=== PATIENT | male | born 1965 | race Caucasian/White ===

== ENCOUNTER 2016-10-21 14:06 | Inpatient (IN) | payer BC, OTHER ==
[~2016-10-21] VITALS: Ht 167.6 cm; Wt 73.9 kg
[2016-10-21] MEDS ORDERED: LORAZEPAM 2 MG/1 ML VIAL IM PRN (14:45)
[2016-10-21] MEDS ORDERED: THIAMINE HCL 200 MG/2 ML VIAL IM ONE (14:45)
[2016-10-21] MEDS ORDERED: LOPERAMIDE HCL 2 MG CAPSULE PO PRN ×2 (14:45)
[2016-10-21] MEDS ORDERED: MIRALAX 17 GM POWD.PACK PO PRN (14:45)
[2016-10-21] MEDS ORDERED: ONDANSETRON ODT 4 MG TAB.RAPDIS SL PRN (14:45)
[2016-10-21] MEDS ORDERED: diphenhydrAMINE 50 MG CAPSULE PO PRN ×2 (14:45→16:45)
[2016-10-21] MEDS ORDERED: MAGNESIUM HYDROXIDE 30 ML LIQUID UDC PO PRN (14:45)
[2016-10-21] MEDS ORDERED: ACETAMINOPHEN 325 MG TABLET PO PRN (14:45)
[2016-10-21] MEDS ORDERED: LORAZEPAM 1 MG TABLET PO PRN ×2 (14:45)
[2016-10-21] MEDS ORDERED: ONDANSETRON 4 MG/2 ML VIAL IM PRN (14:45)
--- NOTE | 2016-10-21 14:45 | NUR ---
Intake assessment Pt ix AxOx4, VS are stable, pt is cleared to come up to unit.
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
[2016-10-21 15:01] VITALS: BP 133/83
[2016-10-21] MEDS ORDERED: METF500T4 PO (15:07)
[2016-10-21] MEDS ORDERED: HYDROXYZINE PAMOATE 25 MG CAPSULE PO ONE (15:45)
--- NOTE | 2016-10-21 15:55 | NUR ---
MD communication Pt c/o severe anxiety. Notified Dr Mirza, ordered vistaril 50mg Po x 1 now. Orders entered, unable to enter orders.
[2016-10-21 16:00] VITALS: BP 121/83
[2016-10-21] MEDS: MAG HYDROX/AL HYDROX/SIMETH 30 ML LIQUID UDC PO PRN (16:02)
[2016-10-21 16:24] LABS: BASOPHILS % (AUTO) 0.2 % (0.0-2.0); BILIRUBIN,TOTAL 0.9 mg/dL (0.2-1.0); CREATININE 0.9 mg/dL (0.6-1.3); EOSINOPHILS % (AUTO) 0.3 % (0.0-7.0); HEMATOCRIT 47.4 % (40-50); HEMOGLOBIN 16.1 G/DL (14.0-18.0); LYMPHOCYTES % (AUTO) 19.7 % (20.5-51.5); MAGNESIUM 2.5 mg/dL (1.8-2.4); MEAN CORPUSCULAR HEMOGLOBIN 31.4 UUG (27.0-31.0); MEAN CORPUSCULAR HGB CONC 34 g/dL (32.0-37.0); MEAN CORPUSCULAR VOLUME 92.4 FL (82.0-92.0); MONOCYTES % (AUTO) 10.1 % (0.0-11.0); NEUTROPHILS # (AUTO) 7.3 K/UL (1.8-8.9); NEUTROPHILS % (AUTO) 69.7 % (38.5-71.5); PLATELET COUNT (AUTO) 142 K/UL (150-450); POTASSIUM 3.6 mmol/L (3.5-5.1); RED BLOOD CELL COUNT(AUTO) 5.13 MIL/UL (4.7-6.1); WHITE BLOOD COUNT (AUTO) 10.3 K/UL (4.0-11.2)
[2016-10-21] MEDS ORDERED: IV NS 1000 ML 1,000 ML IV PRN (16:30)
[2016-10-21] MEDS ORDERED: diphenhydrAMINE 25 MG/10 ML UDC NG PRN (17:00)
--- NOTE | 2016-10-21 17:00 | NUR ---
Reassessment Pt continues to c/o severe anxiety, will administer PRN ativan per Dr Mirza orders
[2016-10-21 17:17] LABS: *AMPHETAMINE, URINE NEGATIVE (NEGATIVE); *BARBITURATE, URINE NEGATIVE (NEGATIVE); *CANNABINOID, URINE NEGATIVE (NEGATIVE); *COCCAINE, URINE NEGATIVE (NEGATIVE); *OPIATE, URINE NEGATIVE (NEGATIVE); *PHENCYCLIDINE SCREEN,URINE NEGATIVE (NEGATIVE)
[2016-10-21] MEDS: METFORMIN HCL 500 MG TABLET PO SCH (17:34)
--- NOTE | 2016-10-21 17:35 | NUR ---
PRN administration Pt has a CIWA of 17. Notified Dr Mirza, administered PRN ativan per MD order. IV 22 G inserted into L hand x 3 attempts. Pt tolerated well. Will continue to monitor pt.
[2016-10-21] MEDS ORDERED: PATIENT MAY USE OWN MED- MD OK PO SCH (18:00)
--- NOTE | 2016-10-21 18:21 | NUR ---
MD communication Pt noted to have severe levels of anxiety, spoke with Dr Garcia, ordered seroqeul 25mg PO Q4H PRN anxiety/agitation, to end on 10/22/16 at 2100. Orders entered, was unable to enter the orders.
--- NOTE | 2016-10-21 18:30 | NUR ---
MD communication Pt states that he had TB from the ages of [age], Dr Mirza notified, stated to administer PPD test. Orders entered.
--- NOTE | 2016-10-21 18:35 | NUR ---
Reassessment Pt is sleeping soundly with 1:1 sitter at bedside. Will continue to monitor pt. All needs addressed at this time. IV fluids infusing.
[2016-10-21] MEDS ORDERED: QUETIAPINE FUMARATE 25 MG TABLET PO PRN (18:45)
--- NOTE | 2016-10-21 18:56 | NUR ---
End of shift note Pt was admitted for ETOH dependence. Pt has a PMHx bipolar d/o, DMII - on metformin PO, pending further lab evaluation. Pt reports an allergy to shellfish, is on a consistent carb diet and is a full code. Pt remains on a 1:1 for safety. IV NS infusing to L hand without incident. 1:1 sitter remains at bedside. Pt required one dose of PRN ativan for his withdrawals s/s, with effectiveness. Will endorse SBAR to oncoming shift. All needs addressed at this time.
--- NOTE | 2016-10-21 19:15 | NUR ---
START OF SHIFT NOTE : Pt. was admitted for ETOH dependence. Pt has a PMHx bipolar d/o, DMII - on metformin PO, pending further lab evaluation. Pt reports an allergy to shellfish, is on a consistent carb diet and is a full code. Pt remains on a 1:1 for safety. IV NS at 120ml/hour infusing to L hand without incident. 1:1 sitter remains at bedside. Pt. is sleeping at this time. Safety measures in place : bed on lowest position with side rails x2 up for safety, call light within reach. Will continue to monitor closely and offer help.
[2016-10-21 20:00] VITALS: BP 140/90
[2016-10-21] MEDS ORDERED: LORAZEPAM 1 MG TABLET PO ONE (21:00)
--- NOTE | 2016-10-22 01:29 | NUR ---
PRN MOTRIN/MAALOX AND BENTYL ADMINISTRATION PATIENT C/O INDIGESTION, ABDOMINAL CRAMPING AND HEADACHE 07/11 . PRN MOTRIN, MAALOX AND BENTYL GIVEN. WILL MONITOR FOR EFFECTIVENESS Addendum: 10/23/16 at 0649 by KARYNA PATEL LVN ERROR: TIME CHARTING
[2016-10-22 04:00] VITALS: BP 123/81
--- NOTE | 2016-10-22 06:00 | NUR ---
PRN BENTYL Pt. complains of stomach cramps. PRN BENTYL given as ordered. Safety measures in place : bed on lowest position with side rails x2 up for safety, call light within reach. Will continue to monitor closely and offer help.
[2016-10-22] MEDS: DICYCLOMINE HCL 20 MG TABLET PO PRN (06:41)
--- NOTE | 2016-10-22 06:54 | NUR ---
END OF SHIFT NOTE : Pt. was admitted for ETOH dependence. Pt has a PMHx bipolar d/o, DMII - on metformin PO, pending further lab evaluation. Pt reports an allergy to shellfish, is on a consistent carb diet and is a full code. Pt remains on a 1:1 for safety. IV NS at 120ml/hour (infusing to L hand) till 04:00. 1:1 sitter remains at bedside. Pt. is sleeping at this time. Pt remains partially compliant with the treatment plan. PRN Bentyl , O2 2l/min via NC given at 04:00 because of SpO2=90%. RR=16, even and unlabored, lungs= small amount of wheezes upon auscultation, abdomen soft and non- distended. Pt denies nausea, vomiting and diarrhea. LAST CIWA=6 at 0400 , CRKHRL=013 ml, voided1 x , slept 6 hours. Safety measures in place : bed on lowest position with side rails x2 up for safety, call light within reach. Will continue to monitor closely and offer help. Addendum: 10/22/16 at 0700 by YRIS CHACON RN Pt. accidentally pulled IV out
--- NOTE | 2016-10-22 07:00 | NUR ---
REASSESSMENT ALLA Pt. is sleeping, RR=16, unlabored and even. Safety measures in place : bed on lowest position with side rails x2 up for safety, call light within reach. Will continue to monitor closely and offer help.
--- NOTE | 2016-10-22 07:15 | NUR ---
start of shift note: received pt from police shift commander nurse, pt is in stable condition no s/s of pain or discomfort. pt is [facility] for [facility]TOH withdrawal/dependence.pt is tolerating taper medications well. pt's IV was dislodged and at this time refuses IV fluids. will discuss with MD if pt needs further IV fluids, pt is tolerating oral fluids at this time. pt's last ciwa is 6. pt remains on 1:1 for unsteady gait
[2016-10-22] MEDS: LORAZEPAM 1 MG TABLET PO SCH ×3 (08:16→21:51)
[2016-10-22] MEDS: FOLIC ACID 1 MG TABLET PO SCH (08:17)
[2016-10-22] MEDS: THIAMINE HCL 100 MG TABLET PO SCH (08:17)
[2016-10-22] MEDS: MULTIVITAMINS,THERAPEUTIC TABLET PO SCH (08:17)
[2016-10-22] MEDS: METFORMIN HCL 500 MG TABLET PO SCH ×2 (08:17→17:07)
--- NOTE | 2016-10-22 08:48 | NUR ---
PRN ADMINISTRATION: PT VERBALIZED HE IS AGITATED AND ANXIOUS. PT APPEARS TREMULOUS. PRN 25 MG SEROQUEL WAS ADMINISTERED. WILL RE-ASSESS EFFECTIVENESS OF MEDICATION
[2016-10-22] MEDS ORDERED: TUBERCULIN,PURIF.PROT.DERIV. 5 TU/0.1 ML TEST ID ONE ×2 (09:00)
--- NOTE | 2016-10-22 09:15 | NUR ---
PRN RE-ASSESSMENT: PT IS IN BED RESTING COMFORTABLY, NO S/S OF AGITATION OR DISCOMFORT.
[2016-10-22 10:32] VITALS: BP 131/92
[2016-10-22 12:30] VITALS: BP 127/90
[2016-10-22] MEDS: CLONIDINE HCL 0.1 MG TABLET PO PRN ×2 (17:08→23:03)
--- NOTE | 2016-10-22 17:21 | NUR ---
PRN ADMINISTRATION: PT VERBALIZED INCREASED ANXIETY AND HR. HR NOTED AT 102. PRN CLONIDINE WAS ADMINISTERED
[2016-10-22] MEDS ORDERED: LORAZEPAM 1 MG TABLET PO ONE (17:30)
[2016-10-22] MEDS ORDERED: HYDROXYZINE PAMOATE 25 MG CAPSULE PO PRN (17:30)
[2016-10-22] MEDS ORDERED: NICOTINE POLACRILEX 4 MG GUM-PK OF TEN BC PRN (17:30)
[2016-10-22 17:32] VITALS: BP 101/82
[2016-10-22] MEDS: MAG HYDROX/AL HYDROX/SIMETH 30 ML LIQUID UDC PO PRN (18:02)
--- NOTE | 2016-10-22 18:02 | NUR ---
PRN MAALOX WAS ADMINISTERED. PT WITH COMPLAINTS OF HEART BURN AND ACID REFLUX FEELING WILL RE-ASSESS EFFECTIVENESS OF MEDICATION
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
[2016-10-22 20:00] VITALS: BP 115/67
--- NOTE | 2016-10-22 20:00 | NUR ---
START OF SHIFT NOTE RECEIVED REPORT FROM DAY SHIFT NURSE. PATIENT IS A 51 YEAR OLD MALE ADMITTED FOR ETOH DEPENDENCE. PATIENT IS ON 5 DAY ATIVAN TAPER. PATIENT IS ALLERGIC TO SHELLFISH AND IODINE. ON CONSISTENT CARB DIET. PATIENT REFUSED TB TEST, ASYMPTOMATIC. DR. HOWARD AWARE. 1:1 WAS DISCONTINUE AND IV. PATIENT PREVIOUSLY WAS PUT 1:1 FOR SAFETY. PATIENT IS NOW DRINKING. PER DAY SHIFT NURSE, PATIENT WAS ANXIOUS WITH NEW ORDER OF VISTARIL. PRN SEROQUEL, CLONIDINE AND MAALOX GIVEN.LAST CIWA 6. VTE PUMPS ON BEDSIDE FOR VTE SCORE 2. ON FALL/SEIZURE PRECAUTION. SAFETY MEASURES IN PLACE. CALL LIGHT IN REACH. WILL CONTINUE TO MONITOR.
[2016-10-22] MEDS: diphenhydrAMINE 25 MG CAP PO PRN (21:51)
--- NOTE | 2016-10-22 21:51 | NUR ---
PRN BENADRYL AND VISTARIL ADMINISTRATION PATIENT REQUESTS FOR SLEEP AID AND REPORTS ANXIETY. PRN VISTARIL AND BENADRYL GIVEN. WILL MONITOR FOR EFFECTIVENESS
--- NOTE | 2016-10-22 23:03 | NUR ---
PRN CATAPRES ADMINISTRATION PATIENT STILL C/O ANXIETY , RESTLESS AND EMOTIONAL. PRN CATAPRES GIVEN. RELAXATION TECHNIQUE PROVIDED. WILL CONTINUE TO MONITOR. Addendum: 10/23/16 at 0650 by KARYNA PATEL LVN CATAPRES AND BENADRYL MILDLY EFFECTIVE
[2016-10-23] VITALS: BP 142/91
--- NOTE | 2016-10-23 01:03 | NUR ---
PRN CATAPRES RE-ASSESSMENT PATIENT IN BED WITH HIS EYES CLOSED. RESPIRATION EVEN AND UNLABORED. NO S/S OF DISTRESS. WILL CONTINUE TO MONITOR
[2016-10-23] MEDS: IBUPROFEN 400 MG TABLET PO PRN (01:29)
[2016-10-23] MEDS: MAG HYDROX/AL HYDROX/SIMETH 30 ML LIQUID UDC PO PRN (01:29)
--- NOTE | 2016-10-23 01:29 | NUR ---
BENTYL UNABLE TO SCAN BENTYL MEDS UNABLE TO SCAN, PACKAGE RIPPED.
--- NOTE | 2016-10-23 01:29 | NUR ---
PRN MOTRIN/MAALOX AND BENTYL ADMINISTRATION PATIENT C/O INDIGESTION, ABDOMINAL CRAMPING AND HEADACHE 07/11 . PRN MOTRIN, MAALOX AND BENTYL GIVEN. WILL MONITOR FOR EFFECTIVENESS
[2016-10-23] MEDS: DICYCLOMINE HCL 20 MG TABLET PO PRN (01:32)
--- NOTE | 2016-10-23 02:29 | NUR ---
PRN LIZZETH DELUCA AND ALLA RE-ASSESSMENT PATIENT IN BED ASLEEP. RESPIRATION EVEN AND UNLABORED. NO S/S OF DISTRESS. WILL CONTINUE TO MONITOR
[2016-10-23 04:00] VITALS: BP 122/83
[2016-10-23 05:06] LABS: HEPATITIS B SURFACE AG Negative (Negative)
--- NOTE | 2016-10-23 07:14 | NUR ---
END OF SHIFT NOTE PATIENT CONTINUE ON 5 DAY ATIVAN TAPER FOR ETOH DEPENDENCE. PATIENT IS ALLERGIC TO SHELLFISH AND IODINE. ON CONSISTENT CARB DIET. PATIENT IS ANXIOUS MOST OF THE SHIFT. REDIRECTION AND RELAXATION TECHNIQUE PROVIDED . PATIENT DRINKING FLUIDS WELL. VTE PUMPS ON BEDSIDE FOR VTE SCORE 2. PATIENT COMPLIANT WITH MEDICATION. ENCOURAGED TO ATTEND AND PARTICIPATE IN ACTIVITIES. ON FALL/SEIZURE PRECAUTION. SAFETY MEASURES IN PLACE. CALL LIGHT IN REACH. WILL CONTINUE TO MONITOR. SLEPT 6 HOURS. FLUID INTAKE OF 855 ML. VOIDED X 1. NO BM. LAST CIWA 2.
--- NOTE | 2016-10-23 07:20 | NUR ---
Start of Shift Enzyme Chemist received report on 51 year old male admitted on 10/21/16 for ETOH detoxification. Pt has an allergy to shellfish and iodine, is a full code and on a constant carbohydrate diet. Pt reports PMH of Bipolar, DM 2 and chronic back pain. Pt does not have accu-checks ordered, no sliding scale correction factor. Pt compliant with administration of Metformin. Pt currently on Ativan taper, tolerating well. Last CIWA of 2 recorded by plumber assistant. Pt received Vistaril, Benadryl, Bentyl, Maalox and Motrin as PRN medication last shift. Enzyme Chemist encounters pt in bed resting with eyes closed. Respiration even, unlabored and rise and chest of fall noted. Bed in low position, wheels locked, side rails up x2 and call light within reach. Will continue to monitor, support and encourage according to plan of care.
[2016-10-23 08:07] VITALS: BP 113/82
[2016-10-23] MEDS: FOLIC ACID 1 MG TABLET PO SCH (08:30)
[2016-10-23] MEDS: METFORMIN HCL 500 MG TABLET PO SCH ×2 (08:30→18:22)
[2016-10-23] MEDS: LORAZEPAM 1 MG TABLET PO SCH ×4 (08:30→20:56)
[2016-10-23] MEDS: MULTIVITAMINS,THERAPEUTIC TABLET PO SCH (08:30)
[2016-10-23] MEDS: THIAMINE HCL 100 MG TABLET PO SCH (08:30)
[2016-10-23] MEDS: BOOST GLUCOSE CONTROL 237 ML LIQUID (CHOCOLATE) PO SCH ×2 (08:48→17:34)
[2016-10-23 13:19] VITALS: BP 114/72
[2016-10-23 16:45] VITALS: BP 111/69
--- NOTE | 2016-10-23 17:19 | NUR ---
PRN Imodium Pt states he has had two bouts of diarrhea and is requesting Imodium, by name. Sap Administrator administered medication per MD order and pt tolerated well. Will continue to monitor, support and encourage according to plan of care.
--- NOTE | 2016-10-23 18:10 | NUR ---
MD Communication Pt informed life insurance underwriter, "there was shellfish in the cafeteria, I have an allergy, it is written everywhere." Pt states his throat is starting to swell and his lips are tingling. " I just need some Benadryl, that will take care of it." Manager Leasing spoke to Dr. Mirza whom stated he would follow up with new orders. Will continue to monitor, support and encourage according to plan of care.
[2016-10-23] MEDS ORDERED: FAMOTIDINE 20 MG TABLET PO ONE (18:15)
[2016-10-23] MEDS ORDERED: diphenhydrAMINE 50 MG CAPSULE PO ONE (18:15)
--- NOTE | 2016-10-23 18:19 | NUR ---
PRN Re-assessment Pt has not had any bowel movement since administration of medication. Will continue to monitor, support and encourage according to plan of care.
--- NOTE | 2016-10-23 18:25 | NUR ---
OT Andreasadryl ordered Benadryl in response to pt's statements egarding his shellfish allergy and desire to have Benadryl. Pt presents relaxed on bed watching TV as health underwriter enters to administer Benadryl per MD order. No s/s of distress noted. Respiration even and unlabored, no swelling noted. Pt tolerated well. Will continue to monitor, support and encourage according to plan of care.
--- NOTE | 2016-10-23 19:03 | NUR ---
START OF SHIFT NOTE: Patient endorsed to day shift nurse in stable condition. Report given. Patient is a 51 year old male admitted to [facility] for Alcohol dependence on 10/21/2016continue 5 Day Ativan since 10/22/2016 which tolerated well without ASE. Patient reports Allergy to Iodine/Shell Fish. Patient is on Full Code, Consistent Carb Diet. Patient is on Fall and Seizures Precautions. PMH: Anxiety, Depression, Bipolar Disorder, DM II, Chronic Low Back Pain, and Substance abuse. Upon endorsement, patient is alert and oriented x4, with steady gait. Speech is soft and clear. VS WNL. Respirations unlabored and even. Lungs Sounds are clear. Patient denies SOB and chest pain. Abdomen is soft and non-tender. Bowel Sounds active in all four quadrants. Skin is intact, warm and dry to touch. CIWA 7. Patient presented with anxiety, agitation, nervousness, tremors, barely sweating, restless legs, and fatigue. Patient denies SI/HI. Encouraged fluids as tolerated. All needs met. Safety measures on place. Call light within reach, bed in lowest position and locked, padded rails up bilaterally. Will continue to monitor closely. Addendum: 10/23/16 at 1949 by LIOR CURRY RN Patient has IV on her left arm with ordered 1/2 NS 120 ml/hour. IV site is intact. Dressing is clean. Addendum: 10/23/16 at 1953 by LIOR CURRY RN IV complete as ordered on 10/21/2016. Addendum: 10/24/16 at 0232 by LIOR CURRY RN Patient endorsed by day shift nurse in stable condition. Report received.
--- NOTE | 2016-10-23 19:03 | NUR ---
End of Shift Coverage Analyst provided report on 51 year old male admitted on 10/21/16 for ETOH detoxification, with no further comments, questions or concerns voiced. Pt has an allergy to shellfish and iodine, is a full code and on a constant carbohydrate diet. Pt reports PMH of Bipolar, DM 2 and chronic back pain. Pt does not have accu-checks ordered, no sliding scale correction factor. Pt compliant with administration of Metformin. Pt currently on Ativan taper, tolerating well. Last CIWA of 6 recorded at 1645. Pt received Imodium as PRN medication this shift. Pt has been anxious, irritable and attention seeking at times. Bed in low position, wheels locked, side rails up x2 and call light within reach. Will continue to monitor, support and encourage according to plan of care.
[2016-10-23 20:00] VITALS: BP 111/81
[2016-10-23] MEDS: GABAPENTIN 300 MG CAPSULE PO SCH (20:56)
[2016-10-23] MEDS: CLONIDINE HCL 0.1 MG TABLET PO SCH (20:56)
[2016-10-23] MEDS: diphenhydrAMINE 25 MG CAP PO PRN (22:26)
--- NOTE | 2016-10-23 22:26 | NUR ---
PRN BENADRYL 75 MG 3 CAP PO ADMINISTRATION. Patient c/o insomnia and asked aid. PRN Benadryl 75 mg 3 cap PO administrated for insomnia with full glass of water as ordered. Patient tolerated well. All needs met. Safety measures on place. Call light within reach, bed in lowest position and locked, padded rails up bilaterally rails up bilaterally. Will continue to monitor closely.
--- NOTE | 2016-10-23 23:36 | NUR ---
RE-ASSESSMENT Patient is sleeping. Respirations even and unlabored. RR:15. PRN Benadryl PO was effective. All needs met. Safety measures on place. Call light within reach, bed in lowest position and locked, padded rails up bilaterally rails up bilaterally. Will continue to monitor closely.
[2016-10-24] VITALS: BP 112/78
[2016-10-24] MEDS: CLONIDINE HCL 0.1 MG TABLET PO PRN (02:18)
--- NOTE | 2016-10-24 02:18 | NUR ---
PRN CATAPRES 0.1 MG 1 TAB PO ADMINISTRATION. Patient c/o increased anxiety, and asked aid. PRN Clonidine 0.1 mg 1 tab PO for anxiety administrated with full glass of water as ordered. Patient tolerated well. All needs met. Safety measures on place. Call light within reach, bed in lowest position and locked, padded rails up bilaterally rails up bilaterally. Will continue to monitor closely. Addendum: 10/25/16 at 0354 by LIOR CURRY RN CLONIDINE UNABLE TO SCAN PRN CLONIDINE UNABLE TO SCAN, PACKAGE RIPPED.
[2016-10-24 04:00] VITALS: BP 98/63
--- NOTE | 2016-10-24 06:51 | NUR ---
END OF SHIFT NOTE: Patient endorsed to day shift nurse in stable condition. Report given. Patient is a 51 year old male admitted to [facility] for Alcohol dependence on 10/21/2016continue 5 Day Ativan since 10/22/2016 which tolerated well without ASE. Patient remains compliant with the treatment plan, medications, and diet regime Patient reports Allergy to Iodine/Shell Fish. Patient is on Full Code, Consistent Carb Diet. Patient is on Fall and Seizures Precautions. Patients denies Seizures Hx r/t withdrawal from substances. VS at 0400: T: 98.4; BP: 98/62; HR: 68; RR: 18; O2 SAT: 98%. Pain level: "0/10". Patient is calm and cooperative. Respirations unlabored and even. Patient denies SOB, cough and chest pain. Patient denies SI/HI. Skin is intact, warm and dry to touch. CIWA 3 at 0400. Last shift superintendent patient presented with the following symptoms of withdrawal: anxiety, agitation, nervousness, tremors that can be felt, diaphoresis, restless legs, insomnia and fatigue. PRN Benadryl PO and PRN Clonidine PO administrated last shift superintendent were effective. Patient slept 4 hours 15 minutes, intake 1,445 ml, voided x2. Encouraged patient to attend group therapies/sessions to learn new coping skills to prevent relapse. All needs met. Safety measures on place. Call light within reach, bed in lowest position and locked, padded rails up bilaterally rails up bilaterally.
--- NOTE | 2016-10-24 07:35 | NUR ---
Start of Shift Forestry Technician received report on 51 year old male admitted on 10/21/16 for ETOH detoxification. Pt has an allergy to shellfish and iodine, is a full code and on a constant carbohydrate diet. Pt reports PMH of Bipolar, DM 2 and chronic back pain. Pt does not have accu-checks ordered, no sliding scale correction factor. Pt compliant with administration of Metformin. Pt currently on Ativan taper, tolerating well. Last CIWA of 3 recorded by manufacturing supervisor 2nd shift. Pt received Benadryl and Clonidine as PRN medication last shift. Pt in room resting, A/O x4 and able to make needs known. Clear with thought and contact. bald Bed in low position, wheels locked, side rails up x2 and call light within reach. Will continue to monitor, support and encourage according to plan of care.
[2016-10-24 08:38] VITALS: BP 110/84
[2016-10-24] MEDS: MULTIVITAMINS,THERAPEUTIC TABLET PO SCH (08:52)
[2016-10-24] MEDS: METFORMIN HCL 500 MG TABLET PO SCH ×2 (08:52→17:07)
[2016-10-24] MEDS: LORAZEPAM 1 MG TABLET PO SCH ×3 (08:52→20:38)
[2016-10-24] MEDS: FOLIC ACID 1 MG TABLET PO SCH (08:52)
[2016-10-24] MEDS: THIAMINE HCL 100 MG TABLET PO SCH (08:52)
[2016-10-24] MEDS: BOOST GLUCOSE CONTROL 237 ML LIQUID (CHOCOLATE) PO SCH ×2 (08:52→17:13)
[2016-10-24] MEDS: GABAPENTIN 300 MG CAPSULE PO SCH ×3 (08:52→20:38)
[2016-10-24] MEDS: CLONIDINE HCL 0.1 MG TABLET PO SCH (09:25)
[2016-10-24 12:35] VITALS: BP 106/76
[2016-10-24] MEDS ORDERED: NICOTINE POLACRILEX 4 MG GUM-PK OF TEN BC PRN (12:45)
[2016-10-24 17:54] VITALS: BP 112/75
--- NOTE | 2016-10-24 18:46 | NUR ---
START OF SHIFT NOTE: Patient endorsed by day shift nurse. Report received. Patient is a 51 year old male admitted to [facility] for Alcohol dependence on 10/21/2016continue 5 Day Ativan since 10/22/2016 which tolerated well without ASE. Patient remains compliant with treatment, medications, and diet regime. Patient reports Allergy to Iodine/Shell Fish. Patient is Full Code, Consistent Carb Diet. Patient is Fall and Seizures Precautions. PMH: Anxiety, Depression, Bipolar Disorder, DM II, Chronic Low Back Pain, Tobacco dependence, and Substance abuse. Upon endorsement, patient is on his room alert and oriented x4, with steady gait. Speech is soft and clear. VS WNL. Respirations unlabored and even. Lungs Sounds are clear throughout. Patient denies SOB and chest pain. Abdomen is soft and non-tender. Bowel Sounds active in all four quadrants. Skin is intact, warm and dry to touch. CIWA 3. Patient is emotional, presented with anxiety, agitation, nervousness, barely sweating, restless legs, and fatigue. Patient denies SI/HI. Encouraged fluids as tolerated. Encouraged patient to attend group therapies/sessions to learn new coping skills to prevent relapse. All needs met. Safety measures on place. Call light within reach, bed in lowest position and locked, padded rails up bilaterally rails up bilaterally.
--- NOTE | 2016-10-24 18:46 | NUR ---
End of Shift Reproductive Endocrinologist provided report on 51 year old male admitted on 10/21/16 for ETOH detoxification, with no further comments, questions or concerns voiced. Pt has an allergy to shellfish and iodine, is a full code and on a constant carbohydrate diet. Pt reports PMH of Bipolar, DM 2 and chronic back pain. Pt does not have accu-checks ordered, no sliding scale correction factor. Pt compliant with administration of Metformin. Pt currently on Ativan taper, tolerating well. Last CIWA of 2 recorded at 1600. Pt did not receive PRN medication today. Pt has been anxious and needy at times. Pt is labile and can become emotional. Pt in room resting, A/O x4 and able to make needs known. Clear with thought and speech. Bed in low position, wheels locked, side rails up x2 and call light within reach. Will continue to monitor, support and encourage according to plan of care.
[2016-10-24 20:00] VITALS: BP_SYST 109; BP_SYST 117; BP_DIAS 62; BP_DIAS 72
[2016-10-24] MEDS: PRAZOSIN HCL 1 MG CAPSULE PO SCH (20:38)
[2016-10-24] MEDS: IBUPROFEN 400 MG TABLET PO PRN (20:45)
[2016-10-24] MEDS: diphenhydrAMINE 25 MG CAP PO PRN (20:45)
--- NOTE | 2016-10-24 20:45 | NUR ---
PRN BENADRYL 75 MG 3 CAP PO AND PRN MOTRIN 400 MG 1 TAB PO ADMINISTRATION Patient c/o insomnia and headache "5/10", and asked aid. PRN Benadryl 75 mg 3 cap PO for insomnia and PRN Motrin 400 mg 1 tab PO for headache administrated for insomnia with full glass of water as ordered. Patient tolerated well. All needs met. Safety measures on place. Call light within reach, bed in lowest position and locked, padded rails up bilaterally rails up bilaterally. Will continue to monitor closely.
--- NOTE | 2016-10-24 21:45 | NUR ---
RE-ASSESSMENT PRN Benadryl PO was non-effective. Patient 's recommended to use relaxation technique. PRN Motrin PO was effective. Patient reports "Headache pain level decreased from 5/10 to 2/10". . All needs met. Safety measures on place. Call light within reach, bed in lowest position and locked, padded rails up bilaterally rails up bilaterally. Will continue to monitor closely.
[2016-10-24] MEDS: GUAIFENESIN/DEXTROMETHORPHAN 5 ML UDC PO PRN (21:53)
--- NOTE | 2016-10-24 21:53 | NUR ---
PRN ROBITUSSIN DM 15 ML - 3 UNIT DOSE CUPS - PO FOR COUGH ADMINISTRATION Patient c/o cough, and ask aid. PRN Robitussin Dm 15 ml - 3 unit dose cups - PO for cough administrated with full glass of water as ordered. Patient tolerated well. All needs met. Safety measures on place. Call light within reach, bed in lowest position and locked, padded rails up bilaterally rails up bilaterally. Will continue to monitor closely.
[2016-10-24] MEDS ORDERED: GUAIFENESIN/DEXTROMETHORPHAN 5 ML UDC ONE (22:02)
--- NOTE | 2016-10-24 22:53 | NUR ---
RE-ASSESSMENT Patient is sleeping. RR:14. Respirations even and unlabored. No cough noted. PRN Robitussin PO was effective. All needs met. Safety measures on place. Call light within reach, bed in lowest position and locked, padded rails up bilaterally rails up bilaterally. Will continue to monitor closely.
[2016-10-25] VITALS: BP 107/78
[2016-10-25 04:00] VITALS: BP 121/81
--- NOTE | 2016-10-25 06:45 | NUR ---
END OF SHIFT NOTE: Patient endorsed to day shift nurse in stable condition. Report given. Patient is a 51 year old male admitted to [facility] for Alcohol dependence on 10/21/2016continue 5 Day Ativan since 10/22/2016 which tolerated well without ASE. Patient remains compliant with the treatment plan, medications, and diet regime Patient reports Allergy to Iodine/Shell Fish. Patient is Full Code, Consistent Carb Diet, is Fall and Seizures Precautions. Patients denies Seizures Hx r/t withdrawal from substances. VS at 0400: T: 97.5; BP: 121/81; HR: 76; RR: 20; O2 SAT: 94%. Pain level: "0/10". Respirations unlabored and even. Patient denies SOB, cough and chest pain. Patient denies SI/HI. Skin is intact, warm and dry to touch. Last CIWA 4 at 0400. PRN Benadryl PO, PRN Motrin PO, and PRN Robitussin PO administrated last tennis camp instructor. Patient slept 7 hours 45 minutes, intake 2,292 ml, voided x3. Encouraged fluids as tolerated. Encouraged patient to attend group therapies/sessions to learn new coping skills to prevent relapse. All needs met. Safety measures on place. Call light within reach, bed in lowest position and locked, padded rails up bilaterally rails up bilaterally.
--- NOTE | 2016-10-25 08:24 | NUR ---
START OF SHIFT NOTE Patient is alert and orientated X4. Patient is laying in bed resting with respirations are even and unlabored. patient slept 7 hours last night per night nurse. PRN Motrin and Robaxin were given last night per night nurse with effectiveness. Last CIWA 4 per night nurse. Patient is on an Ativan taper and tolerating well. All needs have been met. All safety measures in place. will continue to monitor patient.
[2016-10-25 08:36] VITALS: BP 112/78
[2016-10-25] MEDS: GABAPENTIN 300 MG CAPSULE PO SCH ×3 (08:52→20:24)
[2016-10-25] MEDS: MULTIVITAMINS,THERAPEUTIC TABLET PO SCH (08:52)
[2016-10-25] MEDS: FOLIC ACID 1 MG TABLET PO SCH (08:52)
[2016-10-25] MEDS: METFORMIN HCL 500 MG TABLET PO SCH ×2 (08:52→18:39)
[2016-10-25] MEDS: LORAZEPAM 1 MG TABLET PO SCH ×2 (08:52→20:22)
[2016-10-25] MEDS: THIAMINE HCL 100 MG TABLET PO SCH (08:52)
[2016-10-25] MEDS: BOOST GLUCOSE CONTROL 237 ML LIQUID (CHOCOLATE) PO SCH ×2 (08:53→16:40)
[2016-10-25] MEDS: GUAIFENESIN/DEXTROMETHORPHAN 5 ML UDC PO PRN (09:55)
--- NOTE | 2016-10-25 09:59 | NUR ---
PRN Medication Given Patient complaining of a cough Robitussin given. will continue to monitor. Patient also received Nicotine gum.
--- NOTE | 2016-10-25 10:30 | NUR ---
PRN REASSESSMENT Patient expressed cough is better after taking cough medication. Will continue to monitor
[2016-10-25 13:03] VITALS: BP 115/70
[2016-10-25] MEDS: busPIRone 10 MG TABLET PO SCH ×2 (14:00→18:39)
[2016-10-25] MEDS: CLONIDINE HCL 0.1 MG TABLET PO PRN (14:11)
--- NOTE | 2016-10-25 14:13 | NUR ---
PRN MEDICATION Patient complaining of increased anxiety and tense in his shoulder. Clonidine and motrin given. will continue to assess and monitor patient.
--- NOTE | 2016-10-25 14:44 | NUR ---
PRN REASSESSMENT Patient has expressed a decreased in anxiety after receiving his medications. will continue to monitor.
[2016-10-25 17:30] VITALS: BP 117/75
--- NOTE | 2016-10-25 19:08 | NUR ---
END OF SHIFT NOTE Patient is a 51 year old male admitted for ETOH on 10/21/16. Patients vital signs have remained normal throughout the day. Last CIWA 5. Patient was given cough medication, nicotine gum, motrin, an Clonidine PRN with effectiveness. Patient participated in group and activities. No history of seizures. Patient is on an Ativan taper and tolerating well. Skin intact. Patient asked to not be woken up in the middle of the night due to insomnia. Patient refused TB. All needs have been met. All safety measures in place. Will continue to monitor patient until endorsed to coming night nurse.
[2016-10-25 20:00] VITALS: BP 96/74
--- NOTE | 2016-10-25 20:00 | NUR ---
1999 Patient received awake, alert and ambulating in hallway and talking with another patient. Gait is steady. Patient responds to nurse's greeting and introduction with a handshake and, " Hi, you're my nurse alysha?" Patient is oriented to person, place, day, date, time and his personal situation. Patient's color is tannish-pink and his skin is warm, dry and intact. Patient states that he attended [facility] and he has been eating his regular diet trays and taking various fluids ad elizabeth with no gastric issues so far. Patient denies any pain but states that he feels nervous most of the time. Patient's eyes are visibly watery and his facial expression is sad. Vital signs are: 98.6-80-18 96/74, O2 Sat 95%, CIWA 5 . Patient was admitted on 10/21/16 for Alcohol withdrawal and he is currently on a 5-Day Ativan medication taper, which he is apparently tolerating well thus far. Patient is friendly, cooperative and verbally appropriate when interacting with nurse, and he easily talks to nurse about himself and what he's done in his life, as far as his work is concerned. Patient offers no complaints or requests at this time. Patient states that he is going to go down to hospital patio soon for a smoke break.
[2016-10-25] MEDS: PRAZOSIN HCL 1 MG CAPSULE PO SCH (20:24)
[2016-10-25] MEDS: HYDROXYZINE PAMOATE 25 MG CAPSULE PO PRN (22:03)
[2016-10-25] MEDS: QUETIAPINE FUMARATE 25 MG TABLET PO PRN (22:03)
--- NOTE | 2016-10-25 22:03 | NUR ---
PRN MEDICATIONS: Prn Seroquel 50 mg p.o. given per request for sleep medication and Prn Vistaril 50 mg p.o. given per c/o anxiety.
--- NOTE | 2016-10-25 23:03 | NUR ---
REASSESSMENT PRN MEDICATIONS: Patient resting comfortably with eyes closed and respirations quiet, even, unlabored at 14.
--- NOTE | 2016-10-26 | NUR ---
Patient refused to be awakened at this time for V/S, CIWA to be done.
--- NOTE | 2016-10-26 04:00 | NUR ---
Patient refused to be awakened for V/S to be done at this time.
--- NOTE | 2016-10-26 06:30 | NUR ---
0630 Patient slept a total of 7.5 hours and he had 2 voids and no stools. Total intake was 1,500 ml p.o. Prn medications given noted separately per floor protocol. V/SS afebrile, last CIWA 5. Patient is presently sleeping comfortably in stable condition with eyes closed and respirations deep, even, unlabored at 12.
--- NOTE | 2016-10-26 08:00 | NUR ---
Start of Shift Computer Assembler received report on 51 year old male admitted on 10/21/16 for ETOH detoxification. Pt has an allergy to shellfish and iodine, is a full code and on a constant carbohydrate diet. Pt reports PMH of Bipolar, DM 2 and chronic back pain. Pt does not have accu-checks ordered, no sliding scale correction factor. Pt compliant with administration of Metformin. Pt has completed his Ativan taper, and tolerated well. Last CIWA of 5 recorded by casino shift manager. Pt received Seroquel and Vistaril as PRN medication last shift. Pt in room resting, A/O x4 and able to make needs known. Clear with thought and content. Bed in low position, wheels locked, side rails up x2 and call light within reach. Will continue to monitor, support and encourage according to plan of care.
[2016-10-26 08:26] VITALS: BP 124/76
[2016-10-26] MEDS: THIAMINE HCL 100 MG TABLET PO SCH (09:13)
[2016-10-26] MEDS: MULTIVITAMINS,THERAPEUTIC TABLET PO SCH (09:13)
[2016-10-26] MEDS: GABAPENTIN 300 MG CAPSULE PO SCH ×3 (09:13→21:02)
[2016-10-26] MEDS: busPIRone 10 MG TABLET PO SCH ×3 (09:13→17:26)
[2016-10-26] MEDS: FOLIC ACID 1 MG TABLET PO SCH (09:13)
[2016-10-26] MEDS: METFORMIN HCL 500 MG TABLET PO SCH ×2 (09:13→17:26)
[2016-10-26] MEDS: BOOST GLUCOSE CONTROL 237 ML LIQUID (CHOCOLATE) PO SCH ×2 (09:14→17:32)
[2016-10-26 12:30] VITALS: BP 133/83
[2016-10-26 16:50] VITALS: BP 117/87
[2016-10-26 18:50] LABS: *AMPHETAMINE, URINE NEGATIVE (NEGATIVE); *BARBITURATE, URINE NEGATIVE (NEGATIVE); *CANNABINOID, URINE NEGATIVE (NEGATIVE); *COCCAINE, URINE NEGATIVE (NEGATIVE); *OPIATE, URINE NEGATIVE (NEGATIVE); *PHENCYCLIDINE SCREEN,URINE NEGATIVE (NEGATIVE)
--- NOTE | 2016-10-26 18:58 | NUR ---
End of Shift Human Intelligence provided report on 51 year old male admitted on 10/21/16 for ETOH detoxification, with no further comments, questions or concerns voiced. Pt has an allergy to shellfish and iodine, is a full code and on a constant carbohydrate diet. Pt reports PMH of Bipolar, DM 2 and chronic back pain. Pt does not have accu-checks ordered, no sliding scale correction factor. Pt compliant with administration of Metformin. Pt has completed his Ativan taper, and tolerated well. Last CIWA of 2 recorded at 1700. Pt did not receive any PRN ON THIS SHIFT. Pt is cooperative and calm, makes needs known. Social with peers and staff. Bed in low position, wheels locked, side rails up x2 and call light within reach. Will continue to monitor, support and encourage according to plan of care.
[2016-10-26 20:00] VITALS: BP 134/94
--- NOTE | 2016-10-26 20:00 | NUR ---
1999 Patient received awake, alert and ambulating to his room #309 from [facility] in recreation room. Gait steady, brisk. Upon seeing nurse, patient states, " Oh, hi. You my nurse again tonight? I'm leaving tomorrow and I'm going to miss you." Patient states further that, though he is feeling anxious about what's going to be happening to him after his discharge, he is feeling pretty god right now, because " they had a good group tonight". Patient is oriented to person, place, day, date, time and his personal situation. Patient's color is dark pink and his skin is warm, dry and intact. Patient denies any pain or other discomforts at this time and he states that he ate his meals today and continues to drink various fluids ad elizabeth with no gastric issue. Vital signs are: 98-106-20 134/94, O2 Sat 95%, CIWA 6 . Patient was admitted on 10/21/16 for Alcohol withdrawal and he has completed his 5-Day Ativan medication taper at this time. Patient is friendly, cooperative and verbally appropriate when interacting with nurse, though his overall mood/affect is one of shifting anxiety. Patient states that he is going downstairs to hospital [facility] for a smoke break soon and then he is going back to the recreation room "to see the biofuels product manager that's coming tonight". Patient voices no requests for anything. Bed is locked and in lowest position, bed rails are up X 1 and call light within patient's easy reach.
[2016-10-26] MEDS: PRAZOSIN HCL 1 MG CAPSULE PO SCH (21:02)
[2016-10-26] MEDS: QUETIAPINE FUMARATE 25 MG TABLET PO PRN (22:26)
--- NOTE | 2016-10-26 22:26 | NUR ---
PRN MEDICATION: Prn Seroquel 50 mg p.o. given per request for sleep medication.
[2016-10-26] MEDS: CLONIDINE HCL 0.1 MG TABLET PO PRN (23:09)
--- NOTE | 2016-10-26 23:09 | NUR ---
PRN MEDICATION: " I feel real shakey and nervous. I'm also starting to sweat". CAMILLA 6. Prn Catapres 0.1 mg p.o. given for per c/o increasing anxiety, agitation and sweats. Addendum: 10/27/16 at 0509 by EDWIN PEARSON RN CIWA is 9, not 6
[2016-10-26] MEDS: HYDROXYZINE PAMOATE 25 MG CAPSULE PO PRN (23:12)
--- NOTE | 2016-10-26 23:12 | NUR ---
PRN MEDICATION: Prn Vistaril 50 mg p.o. given per c/o increasing anxiety.
--- NOTE | 2016-10-27 | NUR ---
Patient requested at 1999 not to be awakened for V/S to be done at this time.
--- NOTE | 2016-10-27 00:12 | NUR ---
REASSESSMENT PRN MEDICATIONS: Patient noted resting comfortably with eyes closed and respirations quiet, even, unlabored at 12.
[2016-10-27] MEDS: MAG HYDROX/AL HYDROX/SIMETH 30 ML LIQUID UDC PO PRN (03:59)
--- NOTE | 2016-10-27 03:59 | NUR ---
PRN MEDICATION: " Can I have something for heartburn?" Prn Maalox 30 ml p.o. given per c/o heartburn.
[2016-10-27 04:00] VITALS: BP 128/87
--- NOTE | 2016-10-27 04:59 | NUR ---
REASSESSMENT PRN MEDICATION: Patient resting quietly with eyes closed and respirations quiet, even, unlabored at 12.
--- NOTE | 2016-10-27 06:30 | NUR ---
0630 Patient had a somewhat restless night, sleeping only a total 0f 4.5 hours and getting out of bed frequently for food snack, drink, smoke break or to talk to nurse about his anxiety due to his uncertain plans for his immediate life after discharge. Patient given calm reassurances and positive encouragement multiple times, with limited effectiveness. Patient had 1,296 ml p.o. total intake and he had 3 voids and no stools. Prn medications given noted separately per floor protocol. V/SS afebrile, last CIWA at 0400 was 6. Patient is presently resting quietly with eyes closed and respirations even, unlabored at 12.
--- NOTE | 2016-10-27 07:30 | NUR ---
Start of shift note; Received report from night nurse. Patient is a 51 year old male admitted on 10/21/16 for ETOH dependence. patient was placed on a 5 day Ativan taper, completed taper without any adverse reactions. Patient is medically cleared for discharge today, patient refused PPD testing on 10/22/16, MD was notified no orders for chest xray noted patient is asymptomatic. Patient is on fall and seizure precautions. Bed in lowest position, call light within reach. Will continue to monitor patient.
[2016-10-27] MEDS ORDERED: HYDR-3895 PO (07:39)
[2016-10-27] MEDS ORDERED: NICO4GUM38 BC (07:39)
[2016-10-27] MEDS ORDERED: GABA-534 PO (07:39)
[2016-10-27] MEDS ORDERED: DICY20TA28 PO (07:39)
[2016-10-27] MEDS ORDERED: QUET25TA PO (07:39)
[2016-10-27] MEDS ORDERED: CLON0.1T14 PO (07:39)
[2016-10-27] MEDS ORDERED: PRAZ1CAP2 PO (07:39)
[2016-10-27] MEDS ORDERED: BUSP10TA3 PO (07:39)
[2016-10-27 08:00] VITALS: BP 122/84
[2016-10-27] MEDS: BOOST GLUCOSE CONTROL 237 ML LIQUID (CHOCOLATE) PO SCH (08:00)
[2016-10-27] MEDS: MULTIVITAMINS,THERAPEUTIC TABLET PO SCH (08:17)
[2016-10-27] MEDS: FOLIC ACID 1 MG TABLET PO SCH (08:17)
[2016-10-27] MEDS: THIAMINE HCL 100 MG TABLET PO SCH (08:17)
[2016-10-27] MEDS: GABAPENTIN 300 MG CAPSULE PO SCH (08:17)
[2016-10-27] MEDS: busPIRone 10 MG TABLET PO SCH (08:17)
[2016-10-27] MEDS: METFORMIN HCL 500 MG TABLET PO SCH (08:17)
[2016-10-27 11:19] VITALS: BP 128/82
[2016-10-27] MEDS: CLONIDINE HCL 0.1 MG TABLET PO PRN (11:19)
--- NOTE | 2016-10-27 11:20 | NUR ---
PRN medication; PRN Clonidine 0.1mg PO given for anxiety and agitation manifested by patient pacing back and forth in the hallways, appears very nervous. Will continue to monitor patient for effectiveness of medication.
--- NOTE | 2016-10-27 11:44 | NUR ---
Re-assessment; Patient is calm and comfortable at this time. PRN medication is effective.
--- NOTE | 2016-10-27 11:45 | NUR ---
Discharge note; Patient is AOX4. Patient completed treatment without any adverse reactions. All valuables, belongings and prescriptions given to patient. Patient left the hospital at exactly on 1145 on 10/27/16. Patient left in a stable condition.
== END 2016-10-27 11:45 | disposition home or self-care (01) | DRG 895 ==
LOC: SRC 14:20
PROVIDERS: ADMIT Internal Medicine; ATTEND Internal Medicine
PROC: HZ2ZZZZ Detoxification Services for Substance Abuse Treatment (ICD-10-PCS; principal; 2016-10-21)
PROC: HZ41ZZZ Group Counseling for Substance Abuse Treatment, Behavioral (ICD-10-PCS; 2016-10-23)
DX: F10.230 Alcohol dependence with withdrawal, uncomplicated (principal); D69.6 Thrombocytopenia, unspecified; I15.9 Secondary hypertension, unspecified; E87.1 Hypo-osmolality and hyponatremia; F31.9 Bipolar disorder, unspecified; K70.10 Alcoholic hepatitis without ascites; F10.220 Alcohol dependence with intoxication, uncomplicated; F14.21 Cocaine dependence, in remission; Y90.9 Presence of alcohol in blood, level not specified; G47.00 Insomnia, unspecified; Z81.1 Family history of alcohol abuse and dependence; F17.210 Nicotine dependence, cigarettes, uncomplicated; F41.9 Anxiety disorder, unspecified; E86.1 Hypovolemia; E11.9 Type 2 diabetes mellitus without complications; Z79.84 Long term (current) use of oral hypoglycemic drugs; G89.29 Other chronic pain; M54.5 Low back pain; F51.4 Sleep terrors [night terrors]
CPT/HCPCS: 36415; 70030-TC; 80307; 83690; 83735; 85025; 86580; 86592; 86705; 86803; 87340; 87806; A4663; G0480; J3411; J7030; Q0163